=== PATIENT | male | born 1985 | race African-American/Black ===

== ENCOUNTER 2018-07-20 08:28 | Emergency (ER) | payer OTHER ==
[~2018-07-20] VITALS: Ht 160 cm; Wt 80.7 kg
[2018-07-20 08:45] VITALS: TEMP 97.7
[2018-07-20] MEDS ORDERED: KP FOLIC ACID1 MG PO (09:06)
[2018-07-20] MEDS ORDERED: SULFASALAZIN500 MG PO (09:06)
[2018-07-20 09:44] LABS: PLATELET COUNT 228 K/uL (142-355)
[2018-07-20 09:46] LABS: POTASSIUM 3.9 mmol/L (3.6-5.2)
[2018-07-20 12:07] VITALS: BP 128/78
== END 2018-07-20 12:07 | disposition home or self-care (01) ==
LOC: ED 08:28
PROVIDERS: Emergency Medicine
DX: N20.1 Calculus of ureter (principal)
CPT/HCPCS: 80053; 81000; 82550; 85027; 99283

== ENCOUNTER 2020-05-27 16:18 | Outpatient (CLI) | payer OTHER ==
[~2020-05-27 16:18] MED LIST: KP FOLIC ACID1 MG PO; SULFASALAZIN500 MG PO
== END 2020-05-27 22:13 | disposition home or self-care (01) ==
LOC: INF 16:18
PROVIDERS: ATTEND Internal Medicine
DX: Z23 Encounter for immunization (principal)
CPT/HCPCS: 96372

== ENCOUNTER 2020-05-31 08:03 | Outpatient (CLI) | payer OTHER ==
[2020-05-29 20:03] LABS: PLATELET COUNT 209 K/uL (142-355)
== END 2020-05-31 08:04 | disposition home or self-care (01) ==
LOC: LAB 08:03 → LABW 08:03 → LAB 08:04
PROVIDERS: ATTEND Internal Medicine Gastroenterology
DX: K51.80 Other ulcerative colitis without complications (principal)
CPT/HCPCS: 36415; 85027; 85652

== ENCOUNTER 2020-06-18 11:10 | Outpatient (CLI) | payer OTHER | END 2020-06-18 21:16 | disposition home or self-care (01) | LOC: INF 11:10 | PROVIDERS: ATTEND Internal Medicine | DX: Z23 Encounter for immunization (principal) | CPT/HCPCS: 96372 ==

== ENCOUNTER → 2020-11-18 | Outpatient (CLI) | payer OTHER ==
[2020-11-18 06:29] LABS: PLATELET COUNT 259 K/uL (142-355)
[2020-11-18 06:59] LABS: POTASSIUM 3.9 mmol/L (3.6-5.2)
== END ==
LOC: LABW 06:11
PROVIDERS: ATTEND Internal Medicine Gastroenterology
DX: K51.80 Other ulcerative colitis without complications (principal)
CPT/HCPCS: 36415; 80053; 85027; 85652

== ENCOUNTER 2021-05-16 06:23 | Outpatient (CLI) | payer OTHER ==
[2021-05-16 06:51] LABS: PLATELET COUNT 218 K/uL (142-355)
[2021-05-16 07:00] LABS: POTASSIUM 4.6 mmol/L (3.6-5.2)
== END 2021-05-16 20:40 | disposition home or self-care (01) ==
LOC: LABW 06:23
PROVIDERS: ATTEND Internal Medicine Gastroenterology
DX: K51.80 Other ulcerative colitis without complications (principal)
CPT/HCPCS: 36415; 80053; 85027; 85652

== ENCOUNTER 2021-11-22 08:03 | Outpatient (CLI) | payer OTHER ==
[2021-11-22 08:40] LABS: POTASSIUM 4.5 mmol/L (3.6-5.2)
[2021-11-22 08:51] LABS: PLATELET COUNT 240 K/uL (142-355)
== END 2021-11-22 20:18 | disposition home or self-care (01) ==
LOC: LABW 08:03
PROVIDERS: ATTEND Internal Medicine Gastroenterology
DX: K51.80 Other ulcerative colitis without complications (principal)
CPT/HCPCS: 80053; 85027; 85652

== ENCOUNTER → 2021-12-07 | Outpatient (CLI) | payer OTHER | LOC: LABW 08:00 | PROVIDERS: ATTEND Family Medicine | DX: R74.8 Abnormal levels of other serum enzymes (principal); K51.90 Ulcerative colitis, unspecified, without complications; R73.9 Hyperglycemia, unspecified | CPT/HCPCS: 36415; 80053; 80061; 83036 ==

== ENCOUNTER 2021-12-08 08:05 | Outpatient (CLI) | payer OTHER | END 2021-12-08 19:07 | disposition home or self-care (01) | LOC: US 08:05 | PROVIDERS: ATTEND Internal Medicine Gastroenterology | DX: R94.5 Abnormal results of liver function studies (principal) ==

== ENCOUNTER 2021-12-10 07:49 | Outpatient (CLI) | payer OTHER | END 2021-12-10 19:02 | disposition home or self-care (01) | LOC: LABW 07:49 | PROVIDERS: ATTEND Internal Medicine Gastroenterology | DX: R94.5 Abnormal results of liver function studies (principal) | CPT/HCPCS: 36415; 80074; 82103; 82172; 82247; 82390; 82465; 82525; 82728; 82947; 82977; 83010; 83516; 83540; 83550; 83883; 84450; 84460; 84466; 84478; 86038 ==

== ENCOUNTER 2022-05-09 05:49 | Outpatient (CLI) | payer OTHER ==
[2022-05-09 06:11] LABS: PLATELET COUNT 265 K/uL (142-355)
== END 2022-05-09 19:40 | disposition home or self-care (01) ==
LOC: LABW 05:49
PROVIDERS: ATTEND Internal Medicine Gastroenterology
DX: K51.80 Other ulcerative colitis without complications (principal)
CPT/HCPCS: 36415; 80053; 85027; 85652

== ENCOUNTER 2022-06-22 10:51 | Day surgery (SDC) | payer OTHER | END 2022-06-22 14:30 | disposition home or self-care (01) | LOC: OR 10:51 | PROVIDERS: ATTEND Internal Medicine Gastroenterology | PROC: 0DJD8ZZ Inspection of Lower Intestinal Tract, Via Natural or Artificial Opening Endoscopic (ICD-10-PCS; principal; 2022-06-22) | DX: K51.80 Other ulcerative colitis without complications (principal); K64.8 Other hemorrhoids; K92.1 Melena | CPT/HCPCS: J2704; J7120 ==